=== PATIENT | male | born 1970 ===

== ENCOUNTER 2024-03-12 06:41 | Day surgery (SDC) | payer OTHER ==
[~2024-03-12] VITALS: Ht 180.3 cm; Wt 106.6 kg
[2024-03-12] MEDS ORDERED: CEFAZOLIN SODIUM 1,000 MG VIAL IV ONE ×2 (12:15→13:30)
[2024-03-12] MEDS ORDERED: LIDOCAINE HCL 1%/EPINEPHRINE 20ML VIAL IJ ONE (12:15)
[2024-03-12] MEDS ORDERED: METHYLPREDNISOLONE ACETATE 80 MG/ML VIAL IJ ONE (12:15)
[2024-03-12] MEDS ORDERED: KETOROLAC TROMETHAMINE 60 MG VIAL IM ONE (12:15)
[2024-03-12] MEDS ORDERED: BUPIVACAINE HCL 30 ML VIAL IV ONE (12:15)
[2024-03-12] MEDS ORDERED: EPINEPHRINE HCL/PF 1 MG/ML AMPUL IR ONE (12:30)
[2024-03-12] MEDS ORDERED: DUI500 PO (13:28)
[2024-03-12] MEDS ORDERED: TRAM1TAB98 PO (13:28)
[2024-03-12] MEDS ORDERED: PROMETHAZINE HCL 25 MG/ML AMPUL IM PRN (13:30)
[2024-03-12] MEDS ORDERED: MEPERIDINE HCL/PF 25 MG/ML VIAL IM PRN (13:30)
[2024-03-12] MEDS ORDERED: CEFADROXIL 500 MG CAPSULE PO SCH (21:00)
== END 2024-03-12 18:25 | disposition home or self-care (01) ==
LOC: CIR.AMB 06:41
PROVIDERS: ATTEND Orthopaedic Surgery Sports Medicine
DX: M23.221 Derangement of posterior horn of medial meniscus due to old tear or injury, right knee (principal); M23.311 Other meniscus derangements, anterior horn of medial meniscus, right knee; M23.321 Other meniscus derangements, posterior horn of medial meniscus, right knee; M23.51 Chronic instability of knee, right knee; M67.51 Plica syndrome, right knee; M22.41 Chondromalacia patellae, right knee